=== PATIENT | female | born 1995 | race Caucasian/White ===

== ENCOUNTER 2019-12-22 17:16 | Emergency (ER) | payer BC ==
[~2019-12-22] VITALS: Ht 160 cm; Wt 63.5 kg
[2019-12-22] MEDS ORDERED: LIDOCAINE 1% MDV 20ML VIAL SC ONE (17:45)
[2019-12-22] MEDS ORDERED: KEFL500C17 PO (18:42)
[2019-12-22] MEDS ORDERED: CEPHALEXIN 500 MG CAP PO ONE (18:45)
[2019-12-22 18:57] VITALS: BP 130/87
== END 2019-12-22 19:02 | disposition home or self-care (01) ==
LOC: M ED 17:16
DX: S81.012A Laceration without foreign body, left knee, initial encounter (principal); X58.XXXA Exposure to other specified factors, initial encounter; Y92.89 Other specified places as the place of occurrence of the external cause